=== PATIENT | female | born 1985 | race American Indian/Alaskan Native ===

== ENCOUNTER 2022-02-19 08:30 | Emergency (ER) | payer OTHER ==
[2022-02-19 08:35] VITALS: BP 139/70
[2022-02-19] MEDS ORDERED: IBUPROFEN 800 MG TAB PO ONE (08:58)
--- NOTE | 2022-02-19 09:37 | XRay Report ---
Right knee 2 views INDICATION: Knee pain FINDINGS: Alignment appears normal. Small joint effusion. No acute fracture or dislocation. Lumbar spine 3 views INDICATION: Back pain FINDINGS: Alignment appears normal. No subluxation. Facets are well aligned. Visualized sacrum appear s normal. IMPRESSION: No acute findings. Signer Name: Joselito Mariscal MD Signed: 02/19/2022 9:32 AM Workstation Name: [id number]
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
[2022-02-19] MEDS ORDERED: CYCLOBENZAPRINE 10 MG TAB PO ONE (10:34)
== END 2022-02-19 10:52 | disposition home or self-care (01) ==
LOC: ED 08:30
DX: S89.91XA Unspecified injury of right lower leg, initial encounter (principal); S39.92XA Unspecified injury of lower back, initial encounter; Z91.09 Other allergy status, other than to drugs and biological substances; V89.2XXA Person injured in unspecified motor-vehicle accident, traffic, initial encounter; Y93.89 Activity, other specified; Y92.89 Other specified places as the place of occurrence of the external cause; Y99.8 Other external cause status
CPT/HCPCS: 72100; 99283